=== PATIENT | male | born 1970 | race Hispanic/Latino ===

== ENCOUNTER 2016-08-18 01:34 | Emergency (ER) | payer OTHER ==
[2016-08-18 01:54] VITALS: O2SAT 99
[2016-08-18] MEDS ORDERED: Sodium Chloride 0.9% 1,000 ML IV STA (02:03)
--- NOTE | 2016-08-18 02:25 | ED PDOC ---
HPI: Abdomen Time Seen by Provider: 08/18/16 02:02 Chief Complaint (Nursing): GI Problem Chief Complaint (Provider): abd pain, n/v History Per: Patient History/Exam Limitations: no limitations Onset/Duration Of Symptoms: Hrs (5) Outside of [place] travel?: No Current Symptoms Are (Timing): Still Present Additional Complaint(s): 45yo male with PMHx including ulcerative colitis and chronic tinnitus presents to the ED with c/o abdominal pain x 5 hours with associated n/v. Patient reports eating sushi 2 hours prior to onset of symptoms. Patient vomited 5 times (non-bloody, non-bilious). No associated diarrhea. Reports abdominal pain is diffuse in nature. Denies fever, cough, SOB, chest pain. Past Medical History Reviewed: Historical Data, Nursing Documentation, Vital Signs Vital Signs: Last Vital Signs Temp 98 F 08/18/16 01:50 Pulse 79 08/18/16 01:50 Resp 18 08/18/16 01:50 BP 109/66 08/18/16 01:50 Pulse Ox 99 08/18/16 02:30 - Medical History PMH: Kidney Stones Other PMH: ulcerative colitis, chronic tinnitus - Surgical History Surgical History: No Surg Hx - Family History Family History: States: No Known Family Hx - Social History Current smoker - smoking cessation education provided: No Alcohol: Occasional Drugs: Denies - Home Medications Home Medications: Ambulatory Orders Medication Instructions Recorded Dicyclomine [Bentyl] 20 mg PO Q12 PRN #20 tab 08/18/16 Ondansetron ODT [Zofran ODT] 4 mg PO Q6 PRN #16 odt 08/18/16 - Allergies Allergies/Adverse Reactions: Allergies Allergy/AdvReac Type Severity Reaction Status Date / Time No Known Allergies Allergy Verified 08/18/16 01:50 Review of Systems ROS Statement: Except As Marked, All Systems Reviewed And Found Negative Constitutional: Negative for: Fever Cardiovascular: Negative for: Chest Pain Respiratory: Negative for: Cough, Shortness of Breath Gastrointestinal: Positive for: Nausea, Vomiting, Abdominal Pain. Negative for : Diarrhea Physical Exam - Reviewed Nursing Documentation Reviewed: Yes Vital Signs Reviewed: Yes - Physical Exam Appears: Positive for: Well, No Acute Distress, Uncomfortable Head Exam: Positive for: ATRAUMATIC, NORMAL INSPECTION, NORMOCEPHALIC Skin: Positive for: Normal Color, Warm, Dry Eye Exam: Positive for: Normal appearance, EOMI, PERRL ENT: Positive for: Other (tacky mucous membranes ). Negative for: Pharyngeal Erythema, Tonsillar Exudate, Tonsillar Swelling Neck: Positive for: Normal, Painless ROM, Supple Cardiovascular/Chest: Positive for: Regular Rate, Rhythm. Negative for: Murmur , Tachycardia Respiratory: Positive for: Normal Breath Sounds. Negative for: Wheezing, Respiratory Distress Gastrointestinal/Abdominal: Positive for: Bowel Sounds, Soft, Tenderness ( diffuse ) Back: Positive for: Normal Inspection. Negative for: L CVA Tenderness, R CVA Tenderness Extremity: Positive for: Normal ROM. Negative for: Deformity, Swelling Neurologic/Psych: Positive for: Alert, Oriented. Negative for: Motor/Sensory Deficits - Laboratory Results Result Diagrams: 08/18/16 02:30 08/18/16 02:30 - ECG O2 Sat by Pulse Oximetry: 99 Pulse Ox Interpretation: Normal (RA) Medical Decision Making Medical Decision Makin: Impression: 45yo male w/ abdominal pain and n/v in setting of known ulcerative colitis and possible food poisoning Plan: Labs Bentyl 20mg PO, IVF, Pepcid 20mg IV, Zofran 4mg IV reassess [id number]: Labs reviewed, show no clinically significant abnormalities. Patient reports marked improvement in symptoms and is stable for d/c. Dx: gastroenteritis Rx: zofran, bentyl Patient will f/u w/ his PCP Scribe Attestation: Documented by Toni Zacarias acting as a scribe for Mina Cox MD. Provider Scribe Attestation: All medical record entries made by the Scribe were at my direction and personally dictated by me. I have reviewed the chart and agree that the record accurately reflects my personal performance of the history, physical exam, medical decision making, and the department course for this patient. I have also personally directed, reviewed, and agree with the discharge instructions and disposition. Disposition - Clinical Impression Clinical Impression: Food poisoning, Gastroenteritis - Patient ED Disposition Is Patient to be Admitted: No Counseled Patient/Family Regarding: Studies Performed, Diagnosis, Need For Followup, Rx Given - Disposition Disposition: Routine/Home Disposition Time: 03:43 Condition: STABLE Prescriptions: Dicyclomine [Bentyl] 20 mg PO Q12 PRN #20 tab PRN Reason: abdominal pain/diarrhea Ondansetron ODT [Zofran ODT] 4 mg PO Q6 PRN #16 odt PRN Reason: Nausea/Vomiting Instructions: Food Poisoning (ED) Forms: Air Visits Discharge ([place])
[2016-08-18 02:39] LABS: BASO % 0.1 % (0.0-2.0); EOS # 0.1 K/uL (0.0-0.7); EOS % 0.9 % (0.0-4.0); HEMATOCRIT 47.7 % (35.0-51.0); LYMPH # 0.8 K/uL (1.0-4.3); LYMPH % 7.4 % (20.0-40.0); MEAN CELL VOLUME 89.8 fl (80.0-94.0); MEAN CORPUSCULAR HEMOGLOBIN 30.2 pg (27.0-31.0); MEAN CORPUSCULAR HGB CONC 33.7 g/dL (33.0-37.0); MONO # 0.9 K/uL (0.0-0.8); MONO % 7.8 % (0.0-10.0); NEUT # 9.5 K/uL (1.8-7.0); NEUT % 83.8 % (50.0-75.0); PLATELET COUNT 232 K/uL (130-400); RED CELL DISTRIBUTION WIDTH 12.4 % (11.5-14.5); WHITE BLOOD COUNT 11.3 K/uL (4.8-10.8)
[2016-08-18 02:41] LABS: CHLORIDE 103 mmol/L (98-107)
[2016-08-18 02:42] LABS: POTASSIUM 4.4 MMOL/L (3.6-5.0); SODIUM 140 mmol/l (132-148)
[2016-08-18 02:44] LABS: ALB/GLOB RATIO 1.4 (1.0-2.1); BILIRUBIN,TOTAL 0.6 mg/dl (0.2-1.3); CARBON DIOXIDE 27 mmol/L (22-30); GFR AFRICAN-AMERICAN > 60
[2016-08-18 02:45] LABS: ALKALINE PHOSPHATASE 55 U/L (38-126); ALT/SGPT 42 U/L (21-72); AST/SGOT 31 U/L (17-59); BLOOD UREA NITROGEN 22 mg/dl (9-20); CALCIUM 9.4 mg/dL (8.4-10.2); GLUCOSE,RANDOM 100 mg/dL (75-110); LIPASE 39 U/L (23-300)
[2016-08-18 04:02] VITALS: BP 124/69; PULSE 77; RESP 17; TEMP 98.1
[2016-08-18 04:27] LABS: BASOPHIL 1 % (0-2); EOSINOPHIL 2 % (0-7); NEUTROPHIL 80 % (42-75); TOTAL CELLS COUNTED 100
== END 2016-08-18 03:50 | disposition home or self-care (01) ==
LOC: H.ER 01:34
DX: K52.9 Noninfective gastroenteritis and colitis, unspecified (principal); R11.2 Nausea with vomiting, unspecified; A05.9 Bacterial foodborne intoxication, unspecified